=== PATIENT | female | born 1975 | race Caucasian/White ===

== ENCOUNTER 2017-03-17 22:07 | Emergency (ER) | payer MEDICAID ==
[2017-03-17 22:18] VITALS: BP 119/74
[2017-03-17 22:39] LABS: HCG UR QUAL NEGATIVE
[2017-03-17 22:40] LABS: BILIRUBIN,URINE NEGATIVE (NEGATIVE); UA w/ MICROSCOPIC CHARGE YES; UR CULTURE IF IND INDICATED
[2017-03-17] MEDS ORDERED: CIPROFLOXACIN 250 MG TABLET PO STA (22:49)
[2017-03-17] MEDS ORDERED: PHENAZOPYRIDINE 100 MG TABLET PO STA (22:49)
[2017-03-17] MEDS ORDERED: IBUPROFEN 600 MG TABLET PO STA (22:50)
[2017-03-17] MEDS ORDERED: PHENAZOPYRIDINE 100 MG TABLET PO ONE (22:53)
[2017-03-17] MEDS ORDERED: CIPROFLOXACIN 250 MG TABLET PO ONE (22:53)
[2017-03-17] MEDS ORDERED: IBUPROFEN 600 MG TABLET PO ONE (22:54)
--- NOTE | 2017-03-17 22:56 | ED Physician Documentation ---
PD HPI FEMALE - Stated complaint Stated Complaint: FEMALE - Chief complaint Chief Complaint: Abd Pain - History obtained from History obtained from: Patient - History of Present Illness Timing - onset: Yesterday Timing - details: Gradual onset, Still present Associated symptoms: Pelvic pain, Dysuria, Urinary frequency. No: Vaginal bleeding, Vaginal discharge Similar symptoms before: Work up / diagnostics, Treatment Recently seen: Not recently seen - Additional information Additional information: Patient is a 41 year old female presenting to the emergency department for dysuria and increased urinary frequency. patient states that she has had multiple utis in the past and the last one was resistant to keflex. Patient denied nausea, vomiting, fevers, vaginal bleeding or vaginal discharge. Review of Systems Constitutional: denies: Fever, Chills Eyes: denies: Decreased vision Ears: denies: Ear pain, Drainage/discharge Nose: denies: Rhinorrhea / runny nose, Congestion Throat: denies: Sore throat Cardiac: denies: Chest pain / pressure Respiratory: denies: Cough GI: reports: Abdominal Pain. denies: Nausea, Vomiting, Constipation, Diarrhea : reports: Dysuria, Frequency. denies: Hesitancy, Discharge, Vaginal bleeding Skin: denies: Abrasion (s) Musculoskeletal: denies: Back pain Neurologic: denies: Generalized weakness Immunocompromised: denies: Immunocompromised PD PAST MEDICAL HISTORY - Past Medical History Past Medical History: Yes Psych: Anxiety Other Past Medical History: UTI; Urethral Diverticuli - Past Surgical History Past Surgical History: Yes - Present Medications Home Medications: Ambulatory Orders Medication Instructions Recorded Confirmed Ciprofloxacin HCl [Cipro] 500 mg PO BID #13 tablet 03/17/17 Clonazepam 2 mg PO DAILY 03/17/17 03/17/17 Phenazopyridine HCl [Pyridium] 200 mg PO TID PRN #10 tablet 03/17/17 - Allergies Allergies/Adverse Reactions: Allergies Allergy/AdvReac Type Severity Reaction Status Date / Time No Known Drug Allergies Allergy Verified 03/17/17 22:16 - Social History Does the pt smoke?: No Smoking Status: Never smoker Does the pt drink ETOH?: No Does the pt have substance abuse?: No - Immunizations Immunizations are current?: Yes - POLST Patient has POLST: No PD ED PE NORMAL - Vitals Vital signs reviewed: Yes - General General: Alert and oriented X 3, Well developed/nourished - HEENT HEENT: Atraumatic, PERRL, Pharynx benign - Neck Neck: Supple, no meningeal sign, No JVD - Cardiac Cardiac: RRR, No murmur - Respiratory Respiratory: No respiratory distress, Clear bilaterally - Derm Derm: Normal color, Warm and dry, No rash - Extremities Extremities: No deformity, No edema - Neuro Neuro: No motor deficit, No sensory deficit, Normal speech - Psych Psych: Normal mood PD ED PE EXPANDED - General General: In Pain - Abdomen Abdomen: Tender to palpation, Suprapubic. No: Rebound, Guarding Results - Vitals Vitals: Vital Signs - 24 hr 03/17/17 22:16 Temperature 36.4 C L Heart Rate 98 Respiratory 16 Rate Blood Pressure 119/74 O2 Saturation 100 Oxygen O2 Source Room air - Labs Labs: Laboratory Tests 03/17/17 03/17/17 22:20 22:20 Urine Color YELLOW Urine Clarity CLEAR Urine pH 5.0 Ur Specific [place] >=1.030 H >=1.030 H Urine Protein 30 H Urine Glucose (UA) NEGATIVE Urine Ketones NEGATIVE Urine Occult Blood LARGE H Urine Nitrite NEGATIVE Urine Bilirubin NEGATIVE Urine Urobilinogen 1 (NORMAL) Ur Leukocyte Esterase NEGATIVE Urine RBC 11-25 H Urine WBC 11-25 H Ur Squamous Epith Cells FEW Squamous Urine Crystals 3-5 Uric Acid Urine Bacteria Rare Ur Microscopic Review INDICATED Urine Culture Comments INDICATED Urine HCG, Qual NEGATIVE PD MEDICAL DECISION MAKING - ED course Complexity details: reviewed old records, reviewed results, re-evaluated patient , considered differential, d/w patient ED course: Patient was seen and examined at bedside. Urine was collected and was consistent with cystitis with hematuria. Patient was treated with pyridium and cipro. Patient could tolerate PO without any difficulty. Patient was appropriate for outpatient therapy. Patient was discharged in stable condition with normal vital signs. Departure - Departure Disposition: 01 Home, Self Care Clinical Impression: Cystitis, Urinary tract infection Condition: Good Instructions: ED UTI Cystitis Female Follow-Up: Jose Enrique England DO [Primary Care Provider] - Within 1 week (re-evaluate for uti symptoms ) Prescriptions: Ciprofloxacin HCl [Cipro] 500 mg PO BID #13 tablet Phenazopyridine HCl [Pyridium] 200 mg PO TID PRN #10 tablet PRN Reason: dysuria Comments: Your symptoms today are being caused by a bladder infection. You had your first dose of antibiotics tonight and you will need it twice a day for the next week. You can take pyridium, motrin and tylenol for pain. You should make sure that you drink plenty of fluids. you will be notified if the antibiotic is not susceptible. YOu can follow up with your pmd if your symptoms persist. You should return to the emergency department for uncontrollable vomiting, fevers, new, worsening or uncontrollable symptoms. Discharge Date/Time: 03/17/17 23:14
== END 2017-03-17 23:14 | disposition home or self-care (01) ==
LOC: ED 22:07
DX: N30.00 Acute cystitis without hematuria (principal); Z87.440 Personal history of urinary (tract) infections
CPT/HCPCS: 81001; 81025; 87077; 87086; 87181; 99283; A9270; 81003

== ENCOUNTER 2017-06-09 08:10 | Emergency (ER) | payer MEDICAID ==
[2017-06-09 08:38] LABS: BILIRUBIN,URINE NEGATIVE (NEGATIVE); HCG UR QUAL NEGATIVE; UA CHARGE (STRIP ONLY) YES; UR CULTURE IF IND NOT INDICATED
[2017-06-09] MEDS ORDERED: KETOROLAC 60 MG/2 ML VIAL IVP STA (09:03)
[2017-06-09] MEDS ORDERED: SODIUM CHLORIDE 0.9% 1,000 ML IV ONE (09:03)
[2017-06-09] MEDS ORDERED: ONDANSETRON 4 MG/2 ML VIAL IVP STA (09:03)
--- NOTE | 2017-06-09 09:07 | ED Physician Documentation ---
PD HPI BACK PAIN - Stated complaint Stated Complaint: SIDE PX - Chief complaint Chief Complaint: General - History obtained from History obtained from: Patient - History of Present Illness Timing - onset: How many weeks ago (1) Timing - duration: Weeks (1) Timing - details: Gradual onset, Still present Location: Right Quality: Pain, Spasm, Sharp Associated symptoms: No: Fever, Weakness, Numbness, Incontinent of urine, Unable to urinate, Hematuria, Incontinent of stool Improves with: Rest, Position, Meds Worsened by: Movement, Palpation Contributing factors: Other (The patient has been moving some furniture) Similar symptoms before: Has not had sx before Recently seen: Not recently seen - Additional information Additional information: 42-year-old female with a history of prior urinary tract infections has developed pain in her right flank. She has had pain for about 1 week and this started after she did some moving of furniture in her home. She thought this was a back pain from the moving and she waited for symptoms to improve. She states that periodically his symptoms will resolve but the pain is severe. She denies any urinary symptoms specifically she has had some nausea without vomiting. She did have some diarrhea this morning. The area of pain is tender to the touch and a specific area of her flank. She is concerned about a kidney infection. She has not had kidney infection previously. Review of Systems Constitutional: denies: Fever, Chills, Sweats Eyes: denies: Decreased vision Ears: denies: Ear pain Nose: denies: Congestion Throat: denies: Sore throat Cardiac: denies: Chest pain / pressure, Palpitations Respiratory: denies: Dyspnea, Cough GI: reports: Abdominal Pain, Nausea, Diarrhea. denies: Vomiting : denies: Dysuria, Frequency Skin: denies: Rash, Lesions Musculoskeletal: reports: Back pain. denies: Neck pain, Extremity pain Neurologic: denies: Generalized weakness, Focal weakness, Numbness PD PAST MEDICAL HISTORY - Past Medical History Psych: Anxiety - Past Surgical History Past Surgical History: Yes - Present Medications Home Medications: Ambulatory Orders Medication Instructions Recorded Confirmed Ciprofloxacin HCl [Cipro] 500 mg PO BID #13 tablet 03/17/17 Clonazepam 2 mg PO DAILY 03/17/17 03/17/17 Phenazopyridine HCl [Pyridium] 200 mg PO TID PRN #10 tablet 05/24/17 Cyclobenzaprine [Flexeril] 10 mg PO TID PRN #20 tablet 06/09/17 Oxycodone HCl 5 - 10 mg PO Q6HR PRN #15 capsule 06/09/17 - Allergies Allergies/Adverse Reactions: Allergies Allergy/AdvReac Type Severity Reaction Status Date / Time acetaminophen [From Tylenol] AdvReac Unknown Verified 06/09/17 08:25 prochlorperazine AdvReac Unknown Verified 06/09/17 08:25 [From Compazine] prochlorperazine edisylate * AdvReac Unknown Verified 06/09/17 08:25 [From Compazine] prochlorperazine maleate * AdvReac Unknown Verified 06/09/17 08:25 [From Compazine] - Social History Does the pt smoke?: No Smoking Status: Never smoker Does the pt drink ETOH?: No Does the pt have substance abuse?: No - Immunizations Immunizations are current?: Yes - POLST Patient has POLST: No PD ED PE NORMAL - Vitals Vital signs reviewed: Yes (Normal) - General General: Alert and oriented X 3, Well developed/nourished, Other (The patient appears to be in pain with business solutions consultant tone and flattened affect.) - HEENT HEENT: Atraumatic, PERRL - Neck Neck: Supple, no meningeal sign - Cardiac Cardiac: RRR, No murmur - Respiratory Respiratory: No respiratory distress, Clear bilaterally - Abdomen Abdomen: Soft, Non tender - Back Back: No spinal TTP, Other (There is specific right sided CVA tenderness the right kidney is sonographically tender.) - Derm Derm: Normal color, Warm and dry, No rash - Extremities Extremities: No deformity, No edema - Neuro Neuro: No motor deficit, No sensory deficit, Normal speech - Psych Psych: Normal mood Results - Vitals Vitals: Vital Signs - 24 hr 06/09/17 08:21 Temperature 36.8 C Heart Rate 95 Respiratory 18 Rate Blood Pressure 120/74 O2 Saturation 100 Oxygen O2 Source Room air - Labs Labs: Laboratory Tests 06/09/17 06/09/17 06/09/17 08:30 09:29 09:29 WBC 5.8 RBC 4.11 L Hgb 13.5 Hct 38.9 MCV 94.6 MCH 33.0 H MCHC 34.9 RDW 12.0 Plt Count 236 MPV 7.6 L Neut # 2.7 Lymph # 2.2 Stewart # 0.7 Eos # 0.2 Baso # 0.1 Absolute Nucleated RBC 0.00 Nucleated RBCs 0.0 Sodium 137 Potassium 3.8 Chloride 104 Carbon Dioxide 25 Anion Gap 8.0 BUN 12 Creatinine 0.6 Estimated GFR (MDRD) 110 Glucose 106 H Calcium 8.5 Total Bilirubin 0.4 AST 28 ALT 32 Alkaline Phosphatase 58 Total Protein 6.5 L Albumin 3.8 Globulin 2.7 Albumin/Globulin Ratio 1.4 Lipase 30 Urine Color YELLOW Urine Clarity CLEAR Urine pH 6.0 Ur Specific [place] >=1.030 H Urine Protein NEGATIVE Urine Glucose (UA) NEGATIVE Urine Ketones NEGATIVE Urine Occult Blood NEGATIVE Urine Nitrite NEGATIVE Urine Bilirubin NEGATIVE Urine Urobilinogen 0.2 (NORMAL) Ur Leukocyte Esterase NEGATIVE Ur Microscopic Review NOT INDICATED Urine Culture Comments NOT INDICATED Urine HCG, Qual NEGATIVE Procedures - Bedside sono Bedside sono by EMP: With use of bedside ultrasound the right kidney is imaged it is sonographically tender and shows obvious hydronephrosis. Left kidney is imaged as well it is sonographically nontender and does not demonstrate hydronephrosis. - IVC sono (time) 0900 Bedside IVC sono: IVC measures (cm) (0.88), IVC collapsed c insp (cm) (complete) , Dehydration PD MEDICAL DECISION MAKING - ED course Complexity details: reviewed old records, reviewed results, re-evaluated patient , considered differential, d/w patient ED course: 42-year-old female with a prior history of urinary tract infection presents to the emergency department with one-week history of flank pain she is concerned about the possibility of pyelonephritis. Urinalysis is unremarkable with the exception of concentrated urine and there is evidence of hydronephrosis on the bedside ultrasound. I suspect kidney stone as the etiology of her flank pain and here in the emergency department she is administered IV saline Toradol and Zofran and a CT scan of the abdomen and pelvis is obtained. Departure - Departure Disposition: 01 Home, Self Care Clinical Impression: Flank pain, acute Condition: Stable Instructions: ED Sprain Strain Lumbar Follow-Up: Jose Enrique England DO [Primary Care Provider] - Prescriptions: Oxycodone HCl 5 - 10 mg PO Q6HR PRN #15 capsule PRN Reason: Pain Cyclobenzaprine [Flexeril] 10 mg PO TID PRN #20 tablet PRN Reason: Spasms
[2017-06-09] MEDS ORDERED: KETOROLAC 30 MG/ML VIAL ONE (09:18)
[2017-06-09] MEDS ORDERED: ONDANSETRON 4 MG/2 ML VIAL ONE (09:18)
[2017-06-09] MEDS ORDERED: SODIUM CHLORIDE FLUSH 0.9% 10 ML SYRINGE IVP ONE (09:19)
[2017-06-09 09:35] LABS: BASOPHILS # (AUTO) 0.1 10^3/uL (0.0-0.1); BASOPHILS % (AUTO) 1.2 %; EOSINOPHILS # (AUTO) 0.2 10^3/uL (0.0-0.7); HCT - HEMATOCRIT 38.9 % (37.0-47.0); HGB - HEMOGLOBIN 13.5 g/dL (12.0-16.0); LYMPHOCYTES # (AUTO) 2.2 10^3/uL (1.5-3.5); LYMPHOCYTES % (AUTO) 37.8 %; MEAN CORPUSCULAR HGB CONC 34.9 g/dL (32.0-36.0); MEAN CORPUSCULAR VOLUME 94.6 fL (81.0-99.0); MEAN PLATELET VOLUME 7.6 fL (7.9-10.8); MONOCYTES # (AUTO) 0.7 10^3/uL (0.0-1.0); NEUTROPHILS # (AUTO) 2.7 10^3/uL (1.5-6.6); RED BLOOD COUNT 4.11 10^6/uL (4.20-5.40); UNCORRECTED WHITE BLOOD COUNT 5.8 x10^3/uL; WHITE BLOOD COUNT 5.8 x10^3/uL (4.8-10.8)
[2017-06-09 09:47] LABS: ALBUMIN/GLOBULIN RATIO 1.4 (1.0-2.2); BILIRUBIN,TOTAL 0.4 mg/dL (0.2-1.0); CALCIUM 8.5 mg/dL (8.5-10.3); CREATININE 0.6 mg/dL (0.4-1.0); POTASSIUM 3.8 mmol/L (3.5-5.0); TOTAL PROTEIN 6.5 g/dL (6.7-8.2)
--- NOTE | 2017-06-09 10:07 | CT Preliminary Report ---
Exam: CT Abdomen/Pelvis W/O IMPRESSION: 1. No urinary tract stones or obstruction. 2. Probable normal retrocecal appendix within the pelvis. [facility] SITE ID: [id number]
--- NOTE | 2017-06-09 10:10 | CT Report ---
EXAM: CT ABDOMEN AND PELVIS (CT KUB) EXAM DATE: 06/09/2017 09:37 AM. CLINICAL HISTORY: Right flank pain hydro on bedside tender. COMPARISONS: None. TECHNIQUE: Routine axial helical CT imaging was performed through the abdomen and pelvis without IV c ontrast. Reconstructions: Coronal and sagittal. In accordance with CT protocol optimization, one or more of the following dose reduction techniques w ere utilized for this exam: automated exposure control, adjustment of mA and/or KV based on patient s ize, or use of iterative reconstructive technique. FINDINGS: Lung Bases: Unremarkable. Right Kidney/Ureter: No stones, hydronephrosis, or hydroureter. No perinephric fat stranding. Left Kidney/Ureter: No stones, hydronephrosis, or hydroureter. No perinephric fat stranding. Other Solid Organs: Noncontrast images of the solid organs are grossly unremarkable. Gallbladder/Bile Ducts: Unremarkable. Peritoneal Cavity: No free fluid, free air or arias adenopathy. Bowel is grossly unremarkable. Probable normal 3 mm diameter retrocecal appendix on series 3, image 119. Pelvic Organs: No bladder stones or wall thickening. Noncontrast images of the visualized pelvic orga ns are unremarkable. Vasculature: Unremarkable. Other: None. IMPRESSION: 1. No urinary tract stones or obstruction. 2. Probable normal retrocecal appendix within the pelvis. [facility] Referring Provider Line: [phone] SITE ID: [id number]
[2017-06-09] MEDS ORDERED: DEXAMETHASONE 10 MG/ML VIAL IVP STA (11:35)
[2017-06-09] MEDS ORDERED: DEXAMETHASONE 10 MG/ML VIAL ONE (11:55)
[2017-06-09 12:03] VITALS: BP 121/65
== END 2017-06-09 12:01 | disposition home or self-care (01) ==
LOC: ED 08:10
DX: R10.31 Right lower quadrant pain (principal); R11.2 Nausea with vomiting, unspecified; R19.7 Diarrhea, unspecified; Z87.440 Personal history of urinary (tract) infections
CPT/HCPCS: 36415; 74176; 80053; 81001; 81003; 81025; 83690; 85025; 87086; 96374; 96375; 99283; 99284

== ENCOUNTER 2017-07-19 12:51 | Emergency (ER) | payer MEDICAID ==
[2017-07-19 13:09] VITALS: BP 127/84
[2017-07-19 13:29] LABS: BILIRUBIN,URINE NEGATIVE (NEGATIVE); PH,URINE 6.5 PH (5.0-7.5)
[2017-07-19 13:32] LABS: UA w/ MICROSCOPIC CHARGE YES
[2017-07-19 13:46] LABS: WBC,URINE >25 /HPF (0-5)
--- NOTE | 2017-07-19 14:29 | ED Physician Documentation ---
PD HPI FEMALE - Stated complaint Stated Complaint: FEMALE - Chief complaint Chief Complaint: General - History obtained from History obtained from: Patient, Family - History of Present Illness Timing - onset: How many days ago (2) Timing - duration: Days (2) Timing - details: Gradual onset, Still present Associated symptoms: Dysuria, Urinary frequency Contributing factors: No: Similar symptoms before: Diagnosis (UTI) Recently seen: Emergency Dept (Seen in the ED with back pain with neg urine and strain diagnosed.) - Additional information Additional information: 42-year-old female with urinary urgency frequency and dysuria with lower abdominal discomfort for the past 2 days. She has been doing a lot of traveling between here in [place] in [place] as she has a boyfriend here at home in [place] and at home in [place].She has had 2 infections in the past year. Review of Systems Constitutional: denies: Fever, Chills, Myalgias Eyes: denies: Decreased vision Respiratory: denies: Cough GI: denies: Abdominal Pain, Nausea, Vomiting : reports: Dysuria, Frequency Skin: denies: Rash Musculoskeletal: denies: Neck pain, Back pain PD PAST MEDICAL HISTORY - Past Medical History Past Medical History: Yes Psych: Anxiety - Past Surgical History Past Surgical History: Yes - Present Medications Home Medications: Ambulatory Orders Medication Instructions Recorded Confirmed Clonazepam 2 mg PO DAILY 03/17/17 07/19/17 Phenazopyridine [Pyridium] 200 mg PO TID #12 tablet 07/19/17 Sulfamethoxazole/Trimethoprim 1 each PO BID #10 tablet 07/19/17 [Sulfamethoxazole-Tmp Ds Tablet] - Allergies Allergies/Adverse Reactions: Allergies Allergy/AdvReac Type Severity Reaction Status Date / Time acetaminophen [From Tylenol] AdvReac Unknown Verified 07/19/17 13:10 prochlorperazine AdvReac Unknown Verified 07/19/17 13:10 [From Compazine] prochlorperazine edisylate * AdvReac Unknown Verified 07/19/17 13:10 [From Compazine] prochlorperazine maleate * AdvReac Unknown Verified 07/19/17 13:10 [From Compazine] - Social History Does the pt smoke?: No Smoking Status: Never smoker Does the pt drink ETOH?: No Does the pt have substance abuse?: No - Immunizations Immunizations are current?: Yes - POLST Patient has POLST: No PD ED PE NORMAL - Vitals Vital signs reviewed: Yes (Hypertensive) - General General: No acute distress, Well developed/nourished - HEENT HEENT: Atraumatic, PERRL - Respiratory Respiratory: No respiratory distress - Back Back: No CVA TTP, No spinal TTP - Derm Derm: Normal color, Warm and dry, No rash - Extremities Extremities: No deformity, No edema - Neuro Neuro: No motor deficit, No sensory deficit - Psych Psych: Normal mood, Other (Affect is flat) Results - Vitals Vitals: Vital Signs - 24 hr 07/19/17 13:07 Temperature 36.6 C Heart Rate 93 Respiratory 16 Rate Blood Pressure 127/84 H O2 Saturation 99 Oxygen O2 Source Room air - Labs Labs: Laboratory Tests 07/19/17 13:22 Urine Color YELLOW Urine Clarity CLEAR Urine pH 6.5 Ur Specific [place] 1.020 Urine Protein NEGATIVE Urine Glucose (UA) NEGATIVE Urine Ketones NEGATIVE Urine Occult Blood SMALL H Urine Nitrite NEGATIVE Urine Bilirubin NEGATIVE Urine Urobilinogen 0.2 (NORMAL) Ur Leukocyte Esterase LARGE H Urine RBC 6-10 H Urine WBC >25 H Urine WBC Clumps PRESENT Ur Squamous Epith Cells RARE Squamous Urine Bacteria Rare Ur Microscopic Review INDICATED PD MEDICAL DECISION MAKING - ED course Complexity details: reviewed results, re-evaluated patient, considered differential, d/w patient Departure - Departure Disposition: 01 Home, Self Care Clinical Impression: Urinary tract infection Qualifiers: Urinary tract infection type: acute cystitis Hematuria presence: without hematuria Qualified Code(s): N30.00 - Acute cystitis without hematuria Condition: Stable Instructions: ED UTI Cystitis Female Follow-Up: Jose Enrique England DO [Primary Care Provider] - Prescriptions: Phenazopyridine [Pyridium] 200 mg PO TID #12 tablet Sulfamethoxazole/Trimethoprim [Sulfamethoxazole-Tmp Ds Tablet] 1 each PO BID # 10 tablet Comments: Today in the Emergency Department your blood pressure was elevated. This can happen from the stress of the visit itself, from a current illness or circumstance or from uncontrolled hypertension. If you take blood pressure medications take your usual mediations, have your blood pressure re-checked in an appropriate setting and follow up any elevation with your primary care doctor.
[2017-07-19] MEDS ORDERED: PHENAZOPYRIDINE 100 MG TABLET PO STA (14:34)
[2017-07-19] MEDS ORDERED: PHENAZOPYRIDINE 100 MG TABLET PO ONE (14:41)
[2017-07-19 16:43] LABS: HCG UR QUAL NEGATIVE
== END 2017-07-19 14:46 | disposition home or self-care (01) ==
LOC: ED 12:51
DX: N30.00 Acute cystitis without hematuria (principal); R03.0 Elevated blood-pressure reading, without diagnosis of hypertension
CPT/HCPCS: 81001; 81025; 99283; A9270; 81003

== ENCOUNTER 2017-09-29 13:49 | Emergency (ER) | payer MEDICAID ==
[2017-09-29 13:59] VITALS: BP 137/86
--- NOTE | 2017-09-29 14:43 | XRAY Preliminary Report ---
Exam: XR ELBOW 3 VIEW LT IMPRESSION: Normal elbow radiography. [facility] SITE ID: [id number]
--- NOTE | 2017-09-29 15:01 | XRAY Report ---
EXAM: LEFT ELBOW RADIOGRAPHY EXAM DATE: 09/29/2017 02:14 PM. CLINICAL HISTORY: Pain and bruising since a day of cleaning several weeks ago. COMPARISON: None. TECHNIQUE: 3 views. FINDINGS: Bones: Normal. No fractures or bone lesions. Joints: Normal. No effusion. No subluxation. Soft Tissues: Normal. No soft tissue swelling. IMPRESSION: Normal elbow radiography. [facility] Referring Provider Line: [phone] SITE ID: [id number]
--- NOTE | 2017-09-29 15:03 | ED Physician Documentation ---
History of Present Illness - Stated complaint Stated Complaint: LEFT ARM PX - Chief complaint Chief Complaint: Ext Problem - History obtained from History obtained from: Patient (pt is here for evaluation of left elbow pain. 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 states that she has ried motrin and ICE w/o improvement and states that the pain has been worsening. No fevers. no left shoulder pain no left wrist or hand pain.) Review of Systems Constitutional: denies: Fever, Chills Cardiac: denies: Chest pain / pressure Respiratory: denies: Dyspnea GI: denies: Abdominal Pain, Nausea, Vomiting, Constipation, Diarrhea Skin: denies: Rash, Lesions Musculoskeletal: reports: Extremity pain (left arm), Joint pain (left elbow), Joint swelling (left elbow). denies: Neck pain, Back pain Neurologic: denies: Generalized weakness, Focal weakness, Numbness, Headache PD PAST MEDICAL HISTORY - Past Medical History Past Medical History: Yes Psych: Anxiety - Past Surgical History Past Surgical History: Yes - Present Medications Home Medications: Ambulatory Orders Medication Instructions Recorded Confirmed clonazePAM [Clonazepam] 2 mg PO DAILY 03/17/17 07/19/17 Phenazopyridine [Pyridium] 200 mg PO TID #12 tablet 07/19/17 Sulfamethoxazole/Trimethoprim 1 each PO BID #10 tablet 07/19/17 [Sulfamethoxazole-Tmp Ds Tablet] - Allergies Allergies/Adverse Reactions: Allergies Allergy/AdvReac Type Severity Reaction Status Date / Time acetaminophen [From Tylenol] AdvReac Unknown Verified 09/29/17 14:00 prochlorperazine AdvReac Unknown Verified 09/29/17 14:00 [From Compazine] prochlorperazine edisylate * AdvReac Unknown Verified 09/29/17 14:00 [From Compazine] prochlorperazine maleate * AdvReac Unknown Verified 09/29/17 14:00 [From Compazine] - Social History Does the pt smoke?: No Smoking Status: Never smoker Does the pt drink ETOH?: No Does the pt have substance abuse?: No - Immunizations Immunizations are current?: Yes - POLST Patient has POLST: No PD ED PE NORMAL - Vitals Vital signs reviewed: Yes - General General: Alert and oriented X 3, No acute distress, Well developed/nourished - HEENT HEENT: Moist mucous membranes - Cardiac Cardiac: RRR, No murmur, Strong equal pulses (radial ) - Respiratory Respiratory: No respiratory distress, Clear bilaterally - Derm Derm: Normal color, Warm and dry, No rash - Extremities Extremities: Other (left shoulder and left wrist and left hand unremarkable. pt with TTP over the lateral aspect of the left elbow and over the proximal radius. has TTP with supination and some elbow flexion. ) - Neuro Neuro: Alert and oriented X 3, No motor deficit, No sensory deficit, Normal speech Results - Vitals Vitals: Vital Signs - 24 hr 09/29/17 13:54 Temperature 36.6 C Heart Rate 98 Respiratory 18 Rate Blood Pressure 137/86 H O2 Saturation 100 Oxygen O2 Source Room air - Rads (name of study) left elbow Radiology: Final report received PD MEDICAL DECISION MAKING - ED course Complexity details: d/w patient ED course: pt with 3-4 weeks of left elbow pain. x-ray neg for fracture. her hx and PE is C/W tendonitis. She was placed in a posterior splint that she can take off for comfort. she was instructed to call her primary care provider today for a follow up in the next week so that if he sx do not improve with the splint she can discuss ortho consult or PT consult. she expressed understanding. Departure - Departure Disposition: 01 Home, Self Care Clinical Impression: Tendonitis Condition: Good Instructions: RICE Follow-Up: Jose Enrique England DO [Primary Care Provider] - Comments: The splint can be removed is for your comfort only. Call your primary care provider today for a follow up next week so if your symptoms do not improve you can discuss a consult to see ortho or physical therapy.
== END 2017-09-29 15:21 | disposition home or self-care (01) ==
LOC: ED 13:49
DX: M77.9 Enthesopathy, unspecified (principal)
CPT/HCPCS: 29105; 99283